=== PATIENT | male | born 1995 | race Caucasian/White ===

== ENCOUNTER 2017-08-15 06:32 | Emergency (ER) | payer OTHER ==
[~2017-08-15] VITALS: Ht 180.3 cm; Wt 81.7 kg
[2017-08-15 08:08] LABS: CALCIUM 9.5 mg/dL (8.5-10.1)
[2017-08-15 08:10] LABS: ABSOLUTE BASOPHILS 0.1 thou/uL (0.0-0.2); ABSOLUTE EOSINOPHILS 0.1 thou/uL (0.0-0.7); ABSOLUTE LYMPHOCYTES 2.2 thou/uL (0.8-5.3); ABSOLUTE MONOCYTES 2.2 thou/uL (0.0-1.2); ABSOLUTE NEUTROPHILS 13.3 thou/uL (1.6-8.1); BASOPHILS 0.3 %; EOSINOPHILS 0.7 %; HEMATOCRIT 44.2 % (42.0-52.0); HEMOGLOBIN 14.8 gm/dL (14.0-18.0); LYMPHOCYTES 12.3 %; MCH 30.5 pg (26.0-34.0); MCHC 33.4 g/dL (28.0-37.0); MCV 91.1 fL (80.0-100.0); MONOCYTES 12.4 %; MPV 6.8 fl. (7.2-11.1); NUCLEATED RBCS 0 /100WBC; PLATELET COUNT* 407 thou/uL (150-400); POLYS 74.3 %; RBC 4.85 mil/uL (4.50-6.00)
[2017-08-15 08:12] LABS: ALBUMIN 3.9 g/dL (3.4-5.0); TOTAL BILIRUBIN 0.3 mg/dL (<0.1-1.0); TOTAL PROTEIN 8.9 g/dL (6.4-8.2)
[2017-08-15 10:40] VITALS: BP 133/81
== END 2017-08-15 10:44 | disposition short-term general hospital (02) ==
LOC: M.ERS 06:32
PROVIDERS: Personal Emergency Response Attendant
DX: J36 Peritonsillar abscess (principal); F17.210 Nicotine dependence, cigarettes, uncomplicated

== ENCOUNTER 2019-01-03 23:06 | Emergency (ER) | payer OTHER ==
[~2019-01-03] VITALS: Ht 180.3 cm; Wt 81.7 kg
[2019-01-04 00:35] VITALS: BP 136/75
== END 2019-01-04 00:47 | disposition home or self-care (01) ==
LOC: M.ERS 23:06
DX: S61.411A Laceration without foreign body of right hand, initial encounter (principal); F17.210 Nicotine dependence, cigarettes, uncomplicated; W10.9XXA Fall (on) (from) unspecified stairs and steps, initial encounter; Y92.89 Other specified places as the place of occurrence of the external cause; Y93.89 Activity, other specified; Y99.8 Other external cause status

== ENCOUNTER 2019-02-18 03:13 | Inpatient (IN) | payer OTHER ==
[~2019-02-18] VITALS: Ht 180.3 cm; Wt 86.5 kg
[2019-02-18] VITALS (8 sets, daily range): BP systolic 108–156; BP diastolic 55–93
[2019-02-18 03:50] LABS: ABSOLUTE BASOPHILS 0.1 thou/uL (0.0-0.2); ABSOLUTE LYMPHOCYTES 1.2 thou/uL (0.8-5.3); ABSOLUTE MONOCYTES 1.2 thou/uL (0.0-1.2); ABSOLUTE NEUTROPHILS 9.3 thou/uL (1.6-8.1); BASOPHILS 0.7 %; EOSINOPHILS 0.4 %; HEMATOCRIT 39.4 % (42.0-52.0); LYMPHOCYTES 9.9 %; MCH 30.1 pg (26.0-34.0); MCHC 33.1 g/dL (28.0-37.0); MCV 90.9 fL (80.0-100.0); MONOCYTES 10.4 %; MPV 7.3 fl. (7.2-11.1); NUCLEATED RBCS 0 /100WBC; PLATELET COUNT* 284 thou/uL (150-400); POLYS 78.6 %; RBC 4.33 mil/uL (4.50-6.00); RDW-CV 12.8 % (10.5-14.5); WBC 11.8 thou/uL (4.0-11.0)
[2019-02-18 03:59] LABS: CALCIUM 8.6 mg/dL (8.5-10.1); CREATININE 0.9 mg/dL (0.6-1.3); POTASSIUM 3.9 mmol/L (3.5-5.1)
[2019-02-18 04:03] LABS: ALBUMIN 3.2 g/dL (3.4-5.0); TOTAL BILIRUBIN 0.3 mg/dL (<0.1-1.0); TOTAL PROTEIN 7.4 g/dL (6.4-8.2)
--- NOTE | 2019-02-18 05:40 | NUR ---
ASSUMED CARE OF PT AT 1900. PT IS ALERT AND ORIENTED. VSS. PERRLA. PT REPORTS PAIN IN RIGHT FOREARM. PT IS MED SURG STATUS. PT IS RESTING COMFORTABLY. WILL CONTINUE TO MONITOR PT.
--- NOTE | 2019-02-18 09:46 | NUR ---
ASSUMED PT CARE AT 0800, AOX4, UP SBA, O2 SAT 90'S RA. PT MEDSURG. PT COMPLAIN OF R ARM PAIN. SWOLLEN R ARM NOTED. PT HAS PAIN MEDS PRN. VSS, AM ASSESSMENT CHARTED, HOURLY ROUNDING, CALL LIGHT WITHIN REACH, WILL CONTINUE TO MONITOR.
--- NOTE | 2019-02-18 11:36 | NUR ---
Pt is A&O. Resides at home with his mom. Normally active and independent. No DME. No hx of HH or SNF. Goal is home. Following for disposition.
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
[2019-02-18 15:56] LABS: URINE BILIRUBIN NEGATIVE (Negative); URINE BLOOD NEGATIVE (Negative); URINE CLARITY CLEAR; URINE COLOR YELLOW; URINE GLUCOSE-RANDOM NEGATIVE (Negative); URINE KETONES NEGATIVE (Negative); URINE LEUKOCYTES-REFLEX NEGATIVE (Negative); URINE NITRITE-REFLEX NEGATIVE (Negative); URINE PROTEIN TRACE (Negative); URINE SPECIFIC GRAVITY 1.025 (1.005-1.030); URINE UROBILINOGEN 0.2 E.U./dl (0.2-1.0)
--- NOTE | 2019-02-18 17:17 | NUR ---
ASSUMED CARE OF PATIENT THIS AFTERNOON ON RETURN FROM MRI. RIGHT ARM AND HAND SWOLLEN AND TIGHT. FINGERTIPS COOL AND PAIN WITH SLOW CAP REFILL. RADIAL PULSE PRESENT AND STRONG. RIGHT ARM ELEVATED UP ON PILLOWS. PATIENT C/O SEVERE PAIN. TO RIGHT ARM AND HAND. DR GUTIERREZ NOTIFIED. ORDERS RECIEVED.
[2019-02-19] VITALS: BP 129/65
--- NOTE | 2019-02-19 04:14 | NUR ---
ASSUMED PT CARE AT APPROX 1930. PT IS AWAKE AND ORIENTED X4. VSS ON ROOM AIR. RIGHT HAND REMAINED SWOLLEN AND PAINFUL BUT IS A TAD SOFTER, RADIAL PULSE INTACT, WRIST AND FINGER MOBILITY LIMITED. PAIN MEDICATION GIVEN PER JUN.IV ANTIBIOTICS GIVEN PER JUN. WARM MOIST COMPRESS APPLIED ON RIGHT HAND. PT STATED WARM COMPRESS IS HELPING WITH THE PAIN. RIGHT HAND KEPT ELEVATED. PT IS ABLE TO SLEEP MOST OF THE NIGHT. CALL LIGHT WITHIN REACH. HOURLY ROUNDING DONE FOR PT SAFETY.
[2019-02-19 08:00] VITALS: BP 107/59
--- NOTE | 2019-02-19 13:00 | NUR ---
ASSUMED PT CARE AT 0800, AOX4, UP AD AVANI, O2 SAT 90'S RA. PT COMPLAINS OF R HAND PAIN. MEDS GIVEN. WOUND C/D/I. VSS, AM ASSESSMENT CHARTED, MEDS GIVEN PER MAR, CALL LIGHT WITHIN REACH, WILL CONTINUE TO MONITOR.
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
[2019-02-19 16:50] VITALS: BP 121/71
[2019-02-19 20:00] VITALS: BP 114/63
[2019-02-20] VITALS (7 sets, daily range): BP systolic 102–159; BP diastolic 52–87
--- NOTE | 2019-02-20 04:25 | NUR ---
ASSUMED PT CARE AT APPROX 1930. PT IS AWAKE AND ORIENTED X4. VSS ON ROOM AIR. RIGHT HAND REMAINED SWOLLEN, AND PAINFUL BUT PT STATED IT FEELS BETTER. PAIN MEDS GIVEN PER JUN. RT HAND KEPT ELEVATED. IV ANTIBIOTICS GIVEN PER JUN. PT IS ABLE TO SLEEP MOST OF THE NIGHT. CALL LIGHT WITHIN REACH. HOURLY ROUNDING DONE FOR PT SAFETY.
--- NOTE | 2019-02-20 10:47 | NUR ---
assumed pt care report received from nurse. pt is aox4, medsurg status. on ra. vss. see chart. consent signed for I&D of right hand which is swollen, and red. pt got ready for sx. iv abx hanged. pt came back form sx at 1030. vs taken. scds. on. pain medicine given. eating breakfast in bed now. right hand dressing intact. call light at reach. will continue to monitor
--- NOTE | 2019-02-20 16:40 | NUR ---
LIDOCAINE PATCH APPLIED. OXY GIVEN. PT TRANSFERED TO J&[facility] AT 1600 REPORT GIVEN TO NURSE BONILLA. PT LEFT FLOOR ON WHEELCHAIR, BELONGINGS BROUGHT ALONG
--- NOTE | 2019-02-20 18:26 | NUR ---
1615: PATIENT REC'D FROM 2ND FLOOR TO RM 109 PER WC W/ NURSING STAFF FROM TELE PRESENT. PATIENT ALERT AND ORIENTED. NOTED RT HAND DRSGS CDI. PATIENT STATES HAND PAIN 4/10 AT THIS TIME. IV CATH SITE NOTED WNL, +BLOOD RETURN, FLUSHES EASILY W/ 10ML NS. SEE MAR. PATIENT ORIENTED TO RM AND CALL LIGHT. RUE ELEVATED ON PILLOW, HOB UP TO PATIENT COMFORT. TV TURNED ON. PATIENT DENIES OTHER NEEDS AT THIS TIME. ~GINGERRHitesh 1815: PATIENT NOTED RESTING IN BED W/ EYES CLOSED, RESPS EVEN AND UNLABORED. PATIENT DENIES PAIN AT THIS TIME, SEE MAR. STATES HE IS TIRED AND WANTS TO SLEEP. RUE ELEVATED ON PILLOW, CALL LIGHT IN REACH. HRLY ROUNDS DONE. ~GINGERRHitesh
[2019-02-21 03:59] VITALS: BP 114/64
[2019-02-21 04:36] LABS: CALCIUM 9.2 mg/dL (8.5-10.1); CREATININE 0.9 mg/dL (0.6-1.3); HEMATOCRIT 38.4 % (42.0-52.0); HEMOGLOBIN 12.9 gm/dL (14.0-18.0); MAGNESIUM 2.2 mg/dL (1.8-2.4); MCH 30.4 pg (26.0-34.0); MCHC 33.6 g/dL (28.0-37.0); MCV 90.3 fL (80.0-100.0); POTASSIUM 4.3 mmol/L (3.5-5.1); RBC 4.26 mil/uL (4.50-6.00); RDW-CV 12.5 % (10.5-14.5); WBC 10.4 thou/uL (4.0-11.0)
[2019-02-21 07:50] VITALS: BP 119/78
--- NOTE | 2019-02-21 08:00 | NUR ---
Oriented x 4 but drowsy. He has been up independently in the room. He's recieving scheduled ultram and oxy IR. Rt hand bulky dressing dry and intact.
--- NOTE | 2019-02-21 15:20 | OP ---
[address] [address] OPERATIVE REPORT Name: KALEIGHALEXANDRIA L Room: [address] IN .R#: [id number] Admission: 02/18/19 Attend Phys: Amelia Cotto Discharge: Date of : 95 Report #: [id number] THIS REPORT FOR: //name// CC: MYESHA physician/PCP Wild Albright DATE OF SERVICE: 02/20/2019 PREOPERATIVE DIAGNOSIS: Right hand extensor and flexor tenosynovitis, septic with potential and septic MP joint of the same long finger. POSTOPERATIVE DIAGNOSES: Right hand extensor and flexor tenosynovitis, septic with potential and septic MP joint of the same long finger with a large dorsal phlegmon of his right hand on the extensor side. SURGERY PERFORMED: 1. Right hand incision and debridement of the flexor tendon sheath. 2. Arthrotomy of the right long finger MP joint with the debridement as well as lavage. 3. Excision of large dorsal phlegmon of the hand on the right side with tissue and tissue cultures as well as fluid cultures both on the flexor or extensor tendon sides. SURGEON: Nitin Arzate DO CHAIR UPHOLSTERER: Dr. Bhatia. ANESTHESIA: General anesthetic. ANTIBIOTICS: The patient has been on antibiotics prior to surgery. DRAINS: There are no drains. COMPLICATIONS: No complications. ESTIMATED BLOOD LOSS: 5 mL. GROSS FINDINGS: Prior to surgery, this gentleman had continued to have extreme pain with passive range of motion of the long finger, both extension and flexion, extreme pain only of that finger itself and some into the dorsal side of the hand. He did have abrasions to the dorsal MP joint from his past injury. Intraoperative findings correlated with significant severe amount of purulent material, especially on the long finger extensor side extending all the way down into the MP joint and there was fluid not grossly purulent on the flexor side, but definitely fluid within the flexor tendon sheath as well. Post-debridement, the [place] [address] OPERATIVE REPORT Name: ALEXANDRIA FARRIS Room: [address] IN [facility].#: [id number] Admission: 02/18/19 Attend Phys: Amelia Cotto Discharge: Date of : 95 Report #: [id number] SURGERY IN DETAIL: Gentleman was taken to the operating room and placed on table, given the benefit of general anesthetic, he had scrubbed with Hibiclens to his right upper extremity first and a chlorhexidine prep as well as sterile draping for the right hand. Timeout was called and verified by everyone in the room for the hand surgery on the right long finger. Initially started on the flexor side of the hand, a zigzag incision was made over the flexor tendon sheath extending to the proximal phalanx and passed the MP joint with a #15 blade scalpel through skin and subcutaneous tissues. Blunt dissection was carried down to the A1 emmie and the entire flexor tendon was exposed. I did open up the A1 emmie and also slightly distal to that with the scissors technique. Fluid was noted within that tendon sheath, it was cultured and copiously irrigated with normal saline with the finger through the arc of motion. Once this side was exposed and irrigated out completely, I went over to the dorsal side, made an incision from the PIP joint zigzag in fashion to the mid dorsal aspect of the hand with a #15 blade scalpel through skin and subcutaneous tissues. Over the MP joint with his abrasion was then proximally, he had severe amount of purulence noted, this was definitely cultured. All the tissue beneath that was a large phlegmon which we took that whole phlegmon now with scissors technique and curettage technique down to expose the extensor tendon and noted that on the small finger side, there was actually a violation of the capsule, the capsule was opened and there was purulence within the MP joint as well. I did open up that capsule more to expose the MP joint, clearly removed all the synovitic tissue out of, they were copiously irrigated with normal saline and curettage out that phlegmon as stated. At this point in time, we did copious irrigation on the dorsal side of the hand. I closed that capsule with 2-0 Monocryl simple inverted fashion. Several small inverted Monocryl to the dorsal side of the hand where his abrasion was ellipsed out that bad skin tissue area with a #15 blade scalpel, then closed with simple nylon 3-0 to the dorsal side of the hand, the flexor side was closed with the same suture same fashion, a large bulky hand dressing was applied to this right hand. Prior to the dressing, I did inject him with 12 mL of 0.25% Marcaine plain in both sides of the hand. The patient was transferred off the table, taken to recovery in stable condition. I attest I was present for all critical aspects of surgery. Needle, instrument and sponge counts correct. <ELECTRONICALLY SIGNED> By: Nitin Arzate DO 02/21/19 1520 [id number] [id number] Arzate DO /nt
[2019-02-21 16:15] VITALS: BP 110/59
--- NOTE | 2019-02-21 18:45 | NUR ---
PATIENT NOTED SLEEPY THRU AM, MORE ALERT THIS AFTERNOON. PLEASANT AND COOPERATIVE W/ ASSESS AND CARES. DRSG CHANGE TO RT HAND DONE. INC NOTED WELL APPROX, SUTURES INTACT. HRLY ROUNDS DONE. SEE MAR. ~GINGERRN
[2019-02-21 20:00] VITALS: BP 116/72
[2019-02-22] VITALS (8 sets, daily range): BP systolic 110–127; BP diastolic 56–82
[2019-02-22 03:50] LABS: HEMATOCRIT 38.8 % (42.0-52.0); MCHC 33.4 g/dL (28.0-37.0); MCV 89.8 fL (80.0-100.0); MPV 6.6 fl. (7.2-11.1); RBC 4.33 mil/uL (4.50-6.00); RDW-CV 12.9 % (10.5-14.5)
[2019-02-22 04:04] LABS: CALCIUM 9.1 mg/dL (8.5-10.1); CREATININE 0.8 mg/dL (0.6-1.3); POTASSIUM 4.2 mmol/L (3.5-5.1)
--- NOTE | 2019-02-22 06:42 | NUR ---
Oriented x 4,withdrawn and drowsy this shift but less so than previous nightshift. Vitals are stable. He has been refusing his scheduled pain meds. But he did take some meds at 0530. Bulky acewrap dressing to rt hand clean,dry and intact. He has slept well.
[2019-02-22] MEDS ORDERED: AUGMENTIN 875-1 EACH PO (08:46)
[2019-02-22] MEDS ORDERED: LIDOPATCH1 EACH TOP (08:46)
[2019-02-22] MEDS ORDERED: TRAMADOL 50 MG50 MG PO (08:46)
[2019-02-22] MEDS ORDERED: OXYCODONE HCL15 MG PO (08:46)
[2019-02-22] MEDS ORDERED: CIPROFLOXACIN750 MG PO (08:46)
--- NOTE | 2019-02-22 11:27 | NUR ---
PT GIVEN DISCHARGE INFORMATION, CARE NOTES, AND PRESCRIPTIONS. IV REMOVED. DRESSING CHANGED AND PICTURES TAKEN. PT GIVEN DRESSING CHANGE SUPPLIES. FALL RISK PRECAUTIONS IN PLACE. HOURLY ROUNDING COMPLETED. PT LEFT AMBULATORY WITH NURSING STAFF TO HOME.
== END 2019-02-22 11:28 | disposition home or self-care (01) | DRG 506 ==
LOC: M.ERS 03:13 → M.2W 04:09 → M.TBA-ER 04:09 → M.2W 04:21 → M.ORTHSURG 02-20 16:12
PROVIDERS: Emergency Medicine Emergency Medical Services; Internal Medicine; ADMIT Internal Medicine
PROC: 0R9U0ZZ Drainage of Right Metacarpophalangeal Joint, Open Approach (ICD-10-PCS; principal; 2019-02-20)
PROC: 0L970ZZ Drainage of Right Hand Tendon, Open Approach (ICD-10-PCS; 2019-02-20)
PROC: 0RBU0ZZ Excision of Right Metacarpophalangeal Joint, Open Approach (ICD-10-PCS; 2019-02-20)
DX: M65.841 Other synovitis and tenosynovitis, right hand (principal); L03.113 Cellulitis of right upper limb; L02.511 Cutaneous abscess of right hand; F17.210 Nicotine dependence, cigarettes, uncomplicated; S60.412A Abrasion of right middle finger, initial encounter; D72.829 Elevated white blood cell count, unspecified; S61.212A Laceration without foreign body of right middle finger without damage to nail, initial encounter; Y93.89 Activity, other specified; Y92.89 Other specified places as the place of occurrence of the external cause; Y99.8 Other external cause status; V87.8XXA Person injured in other specified noncollision transport accidents involving motor vehicle (traffic), initial encounter; Z23 Encounter for immunization